=== PATIENT | male | born 1965 | race Two or more races ===

== ENCOUNTER 2018-10-14 14:31 | Outpatient (CLI) | payer OTHER | END 2018-10-14 15:08 | disposition home or self-care (01) | LOC: RAD 501 14:31 | DX: M25.562 Pain in left knee (principal) ==

== ENCOUNTER 2022-09-15 10:57 | Outpatient (CLI) | payer BC | END 2022-09-15 11:02 | disposition home or self-care (01) | LOC: RAD 10:57 | PROVIDERS: ATTEND Podiatrist Foot Surgery | DX: M20.21 Hallux rigidus, right foot (principal); M20.22 Hallux rigidus, left foot ==

== ENCOUNTER 2025-11-15 12:18 | Outpatient (CLI) | payer OTHER | END 2025-11-15 12:22 | disposition home or self-care (01) | LOC: RAD 12:18 | PROVIDERS: ATTEND Orthopaedic Surgery | DX: M79.641 Pain in right hand (principal); M79.671 Pain in right foot; M79.672 Pain in left foot ==